=== PATIENT | female | born 1970 | race Hispanic/Latino ===

== ENCOUNTER → 2020-06-04 | Outpatient (CLI) | payer OTHER ==
--- NOTE | 2020-06-05 08:52 | MAM ---
EXAM DESCRIPTION: 3D Diagnostic, Bilateral: Digital Mammography CLINICAL HISTORY: 49 yearsFemaleBILATERAL BREAST PAIN AND LUMPS . Bilateral breast pain and lumps. No family history breast cancer. Menarche age 10. Childbirth age 30. Premenopausal. No HRT. Bilateral breast reduction. Lifetime risk of developing breast cancer (Tyrer-Cuzick model) percentage is 13.4 COMPARISON: Baseline study at this facility. No prior reports available.. TECHNIQUE: Bilateral CC, MLO, and LM projection full-field images, digital mammographic tomosynthesis technique. Bilateral 2-D digital full-field MLO images. CC, MLO, and LM projections. CAD not available. FINDINGS: The breast parenchymal density pattern is: Scattered areas of fibroglandular density. No skin thickening or nipple retraction anterior retroareolar coarse calcification left breast. Bilateral solitary microcalcifications. Bilateral "eggshell" calcifications. Skin mole marker superior posterior left breast. Left axillary lymph nodes. No new focal, stellate mass or density, focal asymmetry , and no suspicious microcalcifications bilaterally. IMPRESSION: Benign exam. BIRAD CATEGORY: 2 BENIGN FINDINGS. RECOMMENDATIONS: FOLLOW UP: Routine digital bilateral mammographic screening, one year interval from May 2020. Written communication explaining the IMPRESSION and follow-up, will be mailed to the patient and referring health care provider. The FINDINGS and the FOLLOW-UP plan were reviewed by the entry level account representative with the patient after the examination. According to the [employer], yearly mammograms are recommended starting at age 40 and continuing as long as a woman is in good health. Any breast change noted on a breast self-exam should be reported promptly to the patient's healthcare provider. Breast MRI is recommended for women with an approximately 20-25% or greater lifetime risk of breast cancer, including women with a strong family history of breast or ovarian cancer and women who have been treated for Hodgkin's disease. A negative mammographic report should not delay tissue diagnosis in patients with significant clinical history or physical findings. Extremely dense breast tissue limits the sensitivity of digital mammography. Electronically signed by: Andrae Sim MD 06/05/2020 8:51 AM CDT
== END ==
LOC: MAMMO 10:00
PROVIDERS: ATTEND Family Medicine
DX: N64.4 Mastodynia (principal); N63.10 Unspecified lump in the right breast, unspecified quadrant; N63.20 Unspecified lump in the left breast, unspecified quadrant
CPT/HCPCS: 77066; G0279